=== PATIENT | male | born 1990 | race African-American/Black ===

== ENCOUNTER 2019-08-08 11:22 | Emergency (ER) | payer SELFPAY ==
[2019-08-08] MEDS ORDERED: Bupivacaine 0.5% 10 ML VIAL ONE (11:42)
[2019-08-08] MEDS ORDERED: HYDROcodone/Acetaminophen 7.5/325 mg Tablet ONE (11:42)
[2019-08-08] MEDS ORDERED: Lidocaine 1% (PF) 30 ML VIAL ONE (11:42)
[2019-08-08] MEDS ORDERED: HYDROcodone/Acetaminophen 10/325 mg Tablet ONE (11:44)
--- NOTE | 2019-08-08 13:18 | RAD ---
THREE VIEWS LEFT HAND: Comparison: None History: Hand pain after injury. FINDINGS: Three views of the left hand shows no evidence of acute fracture or dislocation. No degenerative pantoja ges are seen. There is mild soft tissue swelling of the small finger. IMPRESSION: No evidence of acute osseous abnormality. POS: [facility]
[2019-08-08] MEDS ORDERED: Bacitracin 1 PK ONE (14:40)
== END 2019-08-08 14:52 | disposition home or self-care (01) ==
LOC: ERS 11:22
DX: S61.411A Laceration without foreign body of right hand, initial encounter (principal); W17.89XA Other fall from one level to another, initial encounter
CPT/HCPCS: 12002; 96372; J2001; J3490